=== PATIENT | male | born 1980 | race Caucasian/White ===

== ENCOUNTER 2018-06-05 15:26 | Emergency (ER) | payer SELFPAY ==
[~2018-06-05] VITALS: Ht 185.4 cm; Wt 80.7 kg
[2018-06-05 15:55] LABS: BASO # 0.1 x10^3/uL (0.0-0.2); BASO % 1 % (0-3); EOS # 0.1 x10^3/uL (0.0-0.7); EOS % 1 % (0-3); HEMATOCRIT 43.4 % (39.0-53.0); LYMPH # 2.1 x10^3/uL (1.0-4.8); LYMPH % 26 % (24-48); MEAN CORPUSCULAR HEMOGLOBIN 32 pg (25-35); MEAN CORPUSCULAR HGB CONC 35 g/dL (31-37); MEAN CORPUSCULAR VOLUME 92 fL (79-100); MONO # 0.6 x10^3/uL (0.0-1.1); MONO % 7 % (0-9); NEUT # 5.3 x10^3uL (1.8-7.7); NEUT % 65 % (31-73); PLATELET COUNT 189 x10^3/uL (140-400); RED BLOOD COUNT 4.71 x10^6/uL (4.30-5.70); RED CELL DISTRIBUTION WIDTH 13.7 % (11.5-14.5); WHITE BLOOD COUNT 8.1 x10^3/uL (4.0-11.0)
[2018-06-05 16:06] LABS: ALBUMIN 4.3 g/dL (3.4-5.0); CALCIUM 9.2 mg/dL (8.5-10.1); DIRECT BILIRUBIN 0.1 mg/dL (0.0-0.2); GFR 83.2; POTASSIUM 3.6 mmol/L (3.5-5.1); TOTAL BILIRUBIN 0.2 mg/dL (0.2-1.0); TOTAL PROTEIN 7.3 g/dL (6.4-8.2)
[2018-06-05 16:14] LABS: AMPHETAMINE/METHAMPHETAMINE NEG (NEG); BARBITURATES NEG (NEG); BENZODIAZEPINES NEG (NEG); CANNABINOIDS POS (NEG); COCAINE NEG (NEG); METHADONE NEG (NEG); OPIATES NEG (NEG); PHENCYCLIDINE NEG (NEG)
[2018-06-05] MEDS ORDERED: FLUO20CA16 PO (16:24)
[2018-06-05] MEDS ORDERED: BUSP10TA PO (16:24)
--- NOTE | 2018-06-05 16:43 | PHYS DOC ---
Past History Past Medical History: Anxiety, Bipolar, Depression, Seizure Past Surgical History: No Surgical History Smoking: Non-smoker Alcohol Use: None Drug Use: Marijuana Adult General Chief Complaint Chief Complaint: PSYCH EVALUATION HPI HPI Patient is a 38 year old made who is in by EMS because of suicidal ideation. EMS reported that bystanders reported that patient was outside and thinking somebody patient denies homicidal ideation and states he had an argument with his and went outside and states she wanted to kill himself but does not have any plan. Patient had history of previous suicidal attempt. Patient denies homicidal ideation or hallucination. Review of Systems Review of Systems Constitutional: Denies fever or chills [] Eyes: Denies change in visual acuity, redness, or eye pain [] HENT: Denies nasal congestion or sore throat [] Respiratory: Denies cough or shortness of breath [] Cardiovascular: No additional information not addressed in HPI [] GI: Denies abdominal pain, nausea, vomiting, bloody stools or diarrhea [] : Denies dysuria or hematuria [] Musculoskeletal: Denies back pain or joint pain [] Integument: Denies rash or skin lesions [] Neurologic: Denies headache, focal weakness or sensory changes [] Endocrine: Denies polyuria or polydipsia [] All other systems were reviewed and found to be within normal limits, except as documented in this note. Allergies Allergies Allergies Coded Allergies Type Severity Reaction Last Updated Verified cefaclor Allergy Mild 06/05/18 Yes Physical Exam Physical Exam Constitutional: Well nourished, mild distress, non-toxic appearance. [] HENT: Normocephalic, atraumatic, oropharynx moist, no oral exudates, nose normal. [] Eyes: PERRLA, EOMI, conjunctiva normal, no discharge. [] Neck: Normal range of motion, no tenderness, supple, no stridor. [] Cardiovascular:Heart rate regular rhythm, no murmur [] Lungs & Thorax: Bilateral breath sounds clear to auscultation [] Abdomen: Bowel sounds normal, soft, no tenderness, no masses, no pulsatile masses. [] Skin: Warm, dry, no erythema, no rash. [] Back: No tenderness, no CVA tenderness. [] Extremities: No tenderness, no cyanosis, no clubbing, ROM intact, no edema. [] Neurologic: Alert and oriented X 3, normal motor function, normal sensory function, no focal deficits noted. [] Psychologic: Affect anxious, judgement normal, mood normal. [] Current Patient Data Vital Signs Vital Signs Date Time Temp Pulse Resp B/P (MAP) Pulse Ox O2 Delivery O2 Flow Rate FiO2 06/05/18 15:42 98.3 88 18 97 Room Air Lab Results Laboratory Tests Test 06/05/18 15:42 06/05/18 15:56 White Blood Count 8.1 x10^3/uL (4.0-11.0) Red Blood Count 4.71 x10^6/uL (4.30-5.70) Hemoglobin 15.0 g/dL (13.0-17.5) Hematocrit 43.4 % (39.0-53.0) Mean Corpuscular Volume 92 fL (79-100) Mean Corpuscular Hemoglobin 32 pg (25-35) Mean Corpuscular Hemoglobin Concent 35 g/dL (31-37) Red Cell Distribution Width 13.7 % (11.5-14.5) Platelet Count 189 x10^3/uL (140-400) Neutrophils (%) (Auto) 65 % (31-73) Lymphocytes (%) (Auto) 26 % (24-48) Monocytes (%) (Auto) 7 % (0-9) Eosinophils (%) (Auto) 1 % (0-3) Basophils (%) (Auto) 1 % (0-3) Neutrophils # (Auto) 5.3 x10^3uL (1.8-7.7) Lymphocytes # (Auto) 2.1 x10^3/uL (1.0-4.8) Monocytes # (Auto) 0.6 x10^3/uL (0.0-1.1) Eosinophils # (Auto) 0.1 x10^3/uL (0.0-0.7) Basophils # (Auto) 0.1 x10^3/uL (0.0-0.2) Sodium Level 141 mmol/L (136-145) Potassium Level 3.6 mmol/L (3.5-5.1) Chloride Level 103 mmol/L (98-107) Carbon Dioxide Level 31 mmol/L (21-32) Anion Gap 7 (6-14) Blood Urea Nitrogen 7 mg/dL (8-26) L Creatinine 1.0 mg/dL (0.7-1.3) Estimated GFR (Cockcroft-Gault) 83.2 Glucose Level 117 mg/dL (70-99) H Calcium Level 9.2 mg/dL (8.5-10.1) Magnesium Level 2.0 mg/dL (1.8-2.4) Total Bilirubin 0.2 mg/dL (0.2-1.0) Direct Bilirubin 0.1 mg/dL (0.0-0.2) Aspartate Amino Transferase (AST) 42 U/L (15-37) H Alanine Aminotransferase (ALT) 42 U/L (16-63) Alkaline Phosphatase 63 U/L (46-116) Total Protein 7.3 g/dL (6.4-8.2) Albumin 4.3 g/dL (3.4-5.0) Ethyl Alcohol Level < 10 mg/dL (0-10) Urine Opiates Screen Neg (NEG) Urine Methadone Screen Neg (NEG) Urine Barbiturates Neg (NEG) Urine Phencyclidine Screen Neg (NEG) Urine Amphetamine/Methamphetamine Neg (NEG) Urine Benzodiazepines Screen Neg (NEG) Urine Cocaine Screen Neg (NEG) Urine Cannabinoids Screen Pos (NEG) Urine Ethyl Alcohol Neg (NEG) EKG EKG [] Radiology/Procedures Radiology/Procedures [] Course & Med Decision Making Course & Med Decision Making Pertinent Labs reviewed. (See chart for details) Impression: Evaluation of patient in ER showed 38-year-old male patient brought in by EMS because of suicidal ideation. Patient was evaluated by [facility] and had criteria for inpatient treatment. Waiting for accepting psych hospital. Patient care transferred to Dr. Hawley at 1800. Awaiting Pysch. Eval. [address] Leahy- report for details. Pt. currently eating. Resting in bed. Family visiting with pt. 1900. Pt. watching TV - 2030 hrs. Awaiting Psych. report and possible placement 0. Multiple Psych. Inpatient facilities contacted. Patient currently sleeping. Awaiting Psych. placement. Pt. asleep 2300. Awaiting Psych. placement. Pt. sleeping comfortably- 2400 Awaiting Psych. placement - multiple hospital declining pt. [facility] has opening but refused, stating his psych. assessment did not meet their criteria. 0100 Awaiting Psych. placement. Pt. asleep. 0200. Awaiting call back from [facility] and [facility]. Awaiting Psych. placement. Pt. asleep. 0300. Awaiting Psych. placement. Pt. asleep. 0430 Awaiting Psych. placement. Pt. asleep [id number] Still waiting on [facility]- [facility] - advised decision after 0700. Dr. Caceres informed of pt. and pending response for [facility] and [facility]. Dragon Disclaimer Dragon Disclaimer This electronic medical record was generated, in whole or in part, using a voice recognition dictation system. Departure Departure: Impression: Primary Impression: Suicidal ideation Additional Impression: Marijuana abuse Referrals: ZULMA RENEE APRN (PCP) Problem Qualifiers DESTINEY LEAHY MD Jun 05, 2018 16:43 TRU HAWLEY MD Jun 05, 2018 18:05
[2018-06-05 19:32] VITALS: BP 132/76
[2018-06-06] MEDS ORDERED: clonazePAM 1 MG TABLET PO ONE (07:00)
[2018-06-06] MEDS ORDERED: carBAMazepine 200 MG TABLET PO ONE (07:30)
== END 2018-06-06 08:33 ==
LOC: ER 15:26
DX: R45.851 Suicidal ideations (principal); F12.10 Cannabis abuse, uncomplicated; F41.9 Anxiety disorder, unspecified; F31.9 Bipolar disorder, unspecified; Z91.5 Personal history of self-harm; Z88.1 Allergy status to other antibiotic agents
CPT/HCPCS: 36415; 80048; 80076; 80307; 83735; 85025; 99285; G0480; G0479

== ENCOUNTER 2020-05-12 13:29 | Emergency (ER) | payer BC ==
[~2020-05-12] VITALS: Ht 185.4 cm; Wt 72.0 kg
[~2020-05-12 13:29] MED LIST: BUSP10TA PO; FLUO20CA16 PO
--- NOTE | 2020-05-12 14:12 | PHYS DOC ---
Past History Past Medical History: Anxiety, Bipolar, Depression, Seizure Past Surgical History: No Surgical History Smoking: Non-smoker Alcohol Use: None Drug Use: Marijuana General Adult EDM: Chief Complaint: MULTIPLE COMPLAINTS HPI: HPI: the history was obtained from the patient. Patient is a 40-year-old male with PMH anxiety, depression, bipolar, seizure who presents with a chief complaint of left foot and right third digit calluses. Patient states he has noted over the past several weeks that he has had a firm area under the plantar aspect of his left foot. States it is somewhat tender to palpation. Denies redness. Nu[place] fevers. States it is painful to bear weight on this. Has seen his primary care physician who thought this could be a callus or bunion. He has been given referral to podiatry. Patient also notes a slight callus to the distal aspect of his third digit on his right hand. He is right-handed. Denies any history of syphilis or gonorrhea. Denies any drainage from the area. 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 Denies weakness. No recent antibiotics. Has not tried any medicine to help. No other complaints. Review of Systems: Review of Systems: Constitutional: Denies fever or chills Eyes: Denies change in visual acuity HENT: Denies nasal congestion or sore throat Respiratory: Denies cough or shortness of breath Cardiovascular: Denies chest pain or edema GI: Denies abdominal pain, nausea, vomiting, bloody stools or diarrhea : Denies dysuria Musculoskeletal: Positive for left foot pain Integument: Denies rash Neurologic: Denies headache, focal weakness or sensory changes Endocrine: Denies polyuria or polydipsia Lymphatic: Denies swollen glands Psychiatric: Denies depression or anxiety Heart Score: Risk Factors: Risk Factors: DM, Current or recent (<one month) smoker, HTN, HLP, family history of CAD, obesity. Risk Scores: Score 0 - 3: 2.5% MACE over next 6 weeks - Discharge Home Score 4 - 6: 20.3% MACE over next 6 weeks - Admit for Clinical Observation Score 7 - 10: 72.7% MACE over next 6 weeks - Early Invasive Strategies Allergies: Allergies: Allergies Coded Allergies Type Severity Reaction Last Updated Verified cefaclor Allergy Mild 06/05/18 Yes Physical Exam: PE: Constitutional: Well developed, well nourished, no acute distress, non-toxic appearance. [] HENT: Normocephalic, atraumatic, bilateral external ears normal, oropharynx moist, no oral exudates, nose normal. [] Eyes: PERRLA, EOMI, conjunctiva normal, no discharge. [] Neck: Normal range of motion, no tenderness, supple, no stridor. [] Cardiovascular:Heart rate regular rhythm, no murmur [] Lungs & Thorax: Bilateral breath sounds clear to auscultation [] Abdomen: Bowel sounds normal, soft, no tenderness, no masses, no pulsatile masses. [] Skin: Warm, dry, no erythema, no rash. [] Back: No tenderness, no CVA tenderness. [] Extremities: 2 x 2 centimeter area of firm callus tissue to the plantar aspect of his left foot. No surrounding induration or erythema. No crepitus noted. 0.5 cm x 0.5 cm area of callus formation to the distal palmar aspect of the ri ght third digit. No petechiae, purpura, or bulla noted. No palmar lesions noted to the hands bilaterally. Neurologic: Alert and oriented X 3, normal motor function, normal sensory function, no focal deficits noted. [] Psychologic: Affect normal, judgement normal, mood normal. [] EKG: EKG: [] Radiology/Procedures: Radiology/Procedures: [] Course & Med Decision Making: Course & Med Decision Making Pertinent Labs and Imaging studies reviewed. (See chart for details) [] Patient is a well-appearing 40-year-old male who presents with chief complaint of left foot and right third digit skin change. Initial vital signs unremarkable. Exam noted above. Patient's callus on the plantar aspect of left foot may be bunion related. Tinea pedis appreciated. No signs of bacterial infection. Lesion to the distal palmar aspect of the right third digit concerning for callus as well. Low suspicion for syphilis or gonorrhea rash. Patient will be discharged home with Motrin. He was encouraged to follow-up wit h primary care physician the gasket former that he has been referred to. Patient is agreeable to this plan. Return precautions discussed and understood. Stable for discharge home. Erik Disclaimer: Erik Disclaimer: This electronic medical record was generated, in whole or in part, using a voice recognition dictation system. Departure Departure: Impression: Primary Impression: Tinea pedis of left foot Disposition: 01 HOME/RESIDENCE PRIOR TO ADM Condition: STABLE Referrals: VALERIA CINTRON MD (PCP) Patient Instructions: Athlete's Foot, [id number] Clotrimazole (CLOTRIMAZOLE) 15 Gm Cream..g. 1 LAURITA TP TID for fungal infefction, #45 GM Prov: ALAN OLMEDO DO 05/12/20 Justification of Admission: Justification of Admission: Justification of Admission Dx: N/A ALAN OLMEDO DO May 12, 2020 14:12
[2020-05-12 14:15] VITALS: BP 141/63
[2020-05-12] MEDS ORDERED: CLOT15CR23 TP (14:16)
== END 2020-05-12 14:40 | disposition home or self-care (01) ==
LOC: ER 13:29
DX: B35.3 Tinea pedis (principal); F41.9 Anxiety disorder, unspecified; F32.9 Major depressive disorder, single episode, unspecified; Z88.1 Allergy status to other antibiotic agents
CPT/HCPCS: 99283

== ENCOUNTER 2021-11-04 00:02 | Emergency (ER) | payer BC ==
[~2021-11-04] VITALS: Ht 185.4 cm; Wt 72.0 kg
[~2021-11-04 00:02] MED LIST changes: +CLOT15CR23 TP
--- NOTE | 2021-11-04 00:25 | PHYS DOC ---
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 States he has been fasting over the last 3 days for judaism and had anything to eat but has been drinking a little bit of fluids. Denies any recent travel, traumas, illnesses, fevers, chest pain, shortness of breath, abdominal pain, nausea, vomiting, diarrhea. Denies any dysuria, hematuria or blood in the stool. Denies any alcohol or drug use. Review of Systems Review of Systems Review of systems otherwise unremarkable except noted in HPI Allergies Allergies Allergies Coded Allergies Type Severity Reaction Last Updated Verified cefaclor Allergy Mild 06/05/18 Yes Physical Exam Physical Exam Constitutional: Well developed, well nourished, no acute distress, non-toxic appearance. [] HENT: Normocephalic, atraumatic, bilateral external ears normal, oropharynx moist, no oral exudates, nose normal. [] Eyes: PERRLA, EOMI, conjunctiva normal, no discharge. [] Neck: Normal range of motion, no tenderness, supple, no stridor. [] Cardiovascular: Sinus tachycardia Lungs & Thorax: No respiratory distress Abdomen: no tenderness, Skin: Cool, clammy, no erythema, no rash. [] Back: No tenderness, no CVA tenderness. [] Extremities: No tenderness, no cyanosis, no clubbing, ROM intact, no edema. [] Neurologic: Alert and oriented X 3, normal motor function, normal sensory function, able to sit, stand and walk without issue no focal deficits noted. [] Psychologic: Affect normal, judgement normal, anxious [] EKG EKG [] Radiology/Procedures Radiology/Procedures [] Heart Score C/O Chest Pain: No Risk Factors: Risk Factors: DM, Current or recent (<one month) smoker, HTN, HLP, family history of CAD, obesity. Risk Scores: Risk Factors: DM, Current or recent (<one month) smoker, HTN, HLP, family history of CAD, obesity. Course & Med Decision Making Course & Med Decision Making Patient is a 41-year-old male who presents with a chief complaint of chills and shakes Vital signs notable for sinus tachycardia. Blood sugar 90. Physical exam noted above. Placed on monitor with IV access established and IV fluid given. Given anxiolysis. EKG with a rate of 90, regular rhythm, QRS of 104, QTc of 430, no STEMI. Patient taking p.o. Discussed all findings with patient. Discussed anxiety and panic attacks. Advised begetting eating at least 3 nutritious meals a day and taking a One -A-Day vitamin. Is to follow-up in the morning with his primary care physician to discuss need for further evaluation and treatment and need for consultation with psychologist/psychiatrist for management of generalized anxiety with and without panic attacks. Gave return precautions to the ED. Patient grateful, verbalized understanding and agreed with plan of discharge. Dragon Disclaimer Dragon Disclaimer This electronic medical record was generated, in whole or in part, using a voice recognition dictation system. Departure Departure: Impression: Primary Impression: Anxiety Additional Impressions: Chills Shakes Disposition: 01 HOME / SELF CARE / HOMELESS Condition: STABLE Referrals: VALERIA CINTRON MD (PCP) Patient Instructions: Anxiety and Panic Attacks, Tremor Additional Instructions: Thank you for coming into the emergency department tonight and allowing us to take care of you. Please read the attached information carefully to go over things we discussed. It is very important that you try to get some nutrition in over the next couple of days and take a multivitamin as well. Please stay well-hydrated. Please eat a good meal when you go home tonight. Please follow- up in the morning with your primary care physician update on your ED visit and discuss management of anxiety and panic attacks. Please come back to the emergency department immediately with new or concerning symptoms as discussed. Problem Qualifiers PERRY COBB MD Nov 04, 2021 00:25
[2021-11-04] MEDS ORDERED: IV RINGERS SOLUTION,LACTATED 1,000 ML IV ONE (00:30)
[2021-11-04] MEDS ORDERED: MIDAZOLAM HCL PF 5 MG/5 ML VIAL. IV ONE (00:30)
[2021-11-04 00:49] LABS: CALCIUM 9.1 mg/dL (8.5-10.1); GFR 81.9
--- NOTE | 2021-11-04 01:55 | EKG ---
[address] [address] Test Date: 2021-11-04 Test Time: 01:50:33 Pat Name: RIZWANA BRASWELL Department: Room: Gender: M Ambulatory Care: : 1980 Requested By: PERRY COBB Order Number: [id number] Reading MD: Cali Aguilar MD Measurements Intervals [place] Rate: 90 P: 71 WI: 150 QRS: 61 QRSD: 104 T: 53 QT: 348 QTc: 430 Interpretive Statements SINUS RHYTHM Electronically Signed On 11-08-2021 11:15:07 CREDIT VERIFICATION CLERK by Cali Aguilar MD
[2021-11-04 02:30] VITALS: BP 131/74
== END 2021-11-04 02:30 | disposition home or self-care (01) ==
LOC: ER 00:02
DX: F41.9 Anxiety disorder, unspecified (principal); R68.83 Chills (without fever); Z88.1 Allergy status to other antibiotic agents
CPT/HCPCS: 36415; 80048; 82947; 83735; 93005; 96361; 96374; 99284; J2250; J7120